=== PATIENT | female | born 1965 | race Hispanic/Latino ===

== ENCOUNTER 2022-06-07 20:13 | Emergency (ER) | payer OTHER, SELFPAY ==
[2022-06-07] MEDS ORDERED: Acetaminophen 500 MG TAB ONE (20:51)
[2022-06-07] MEDS ORDERED: Lorazepam 2 MG/ML VIAL ONE (20:51)
== END 2022-06-07 21:55 | disposition home or self-care (01) ==
LOC: ERS 20:13
DX: R07.89 Other chest pain (principal); M54.2 Cervicalgia; M54.6 Pain in thoracic spine; I10 Essential (primary) hypertension; E11.9 Type 2 diabetes mellitus without complications; V43.52XA Car driver injured in collision with other type car in traffic accident, initial encounter; W22.11XA Striking against or struck by driver side automobile airbag, initial encounter
CPT/HCPCS: 71045; 96372; J2060

== ENCOUNTER 2024-06-10 11:43 | Outpatient (CLI) | payer BC | END 2024-06-10 11:44 | disposition home or self-care (01) | LOC: BICRAD 11:43 | DX: M25.511 Pain in right shoulder (principal); M19.011 Primary osteoarthritis, right shoulder ==

== ENCOUNTER 2024-07-30 17:37 | Emergency (ER) | payer BC, OTHER ==
[2024-07-30 21:09] LABS: Bacteria/HPF None Seen HPF (None Seen); Bilirubin Negative (Negative); Blood, Urine Negative (Negative); CAUTI Indications for Culture Pelvic or flank pain; Clarity Clear (Clear); Glucose, Urine (Dipstick) Greater than 1000 mg/dL (Negative); Ketone, Urine Trace mg/dL (Negative); Leukocyte Negative Leu/uL (Negative); Nitrite Negative (Negative); Protein, Urine (Dipstick) 10 mg/dL (Neg-Trace); RBC/HPF 0-3 HPF (0-3); Specific Gravity, Urine 1.047 (1.002-1.036); Squamous Epithelial 0-3 HPF (0-3); Urobilinogen Normal mg/dL (Less than 2); WBC/HPF 0-3 HPF (0-3)
[2024-07-30 21:10] LABS: Urine Culture Reflex No No
[2024-07-30] MEDS ORDERED: Ketorolac Tromethamine 30 MG (1 mL) VIAL ONE (21:32)
[2024-07-30 22:12] LABS: #Basophils 0.03 10x3/uL (0.0-0.2); %Basophils 0.4 % (0.0-1.0); %Eosinophils 1.9 % (0.0-10.0); %Monocytes 7.3 % (0.0-10.0); %Neutrophils 64.7 % (42.0-75.0); Hematocrit 39.3 % (36.0-47.0); Hemoglobin 12.9 g/dL (12.0-16.0); Mean Corpuscular HGB CONC 32.8 g/dL (32.0-36.0); Mean Corpuscular Hemoglobin 27.5 pg (27.0-31.0); Mean Corpuscular Volume 83.8 fL (78.0-98.0); Mean Platelet Volume 8.9 fL (7.4-10.4); Platelet Count 425 10x3/uL (130-400); RBC Distribution Width 13.6 % (11.5-14.5); Red Blood Cell (RBC) Count 4.69 mill/uL (4.20-5.40)
[2024-07-30 22:33] LABS: ALT (SGPT) 18 U/L (8-55); AST (SGOT) 17 U/L (5-34); Albumin 3.8 g/dL (3.5-5.0); Alkaline Phosphatase 125 U/L (40-110); Anion Gap 15 mmol/L (10-20); BUN (Urea Nitrogen) 14 mg/dL (9.8-20.1); Bilirubin, Total 0.3 mg/dL (0.2-1.2); Calc. Creatinine Clearance 0 mL/min (70-130); Calcium 7.9 mg/dL (7.8-10.44); Carbon Dioxide 24 mmol/L (22-29); Chloride 102 mmol/L (98-107); Estimated GFR 96; Globulin 3.3 g/dL (2.4-3.5); Glucose 313 mg/dL (70-105); Potassium 3.6 mmol/L (3.5-5.1); Protein, Total 7.1 g/dL (6.0-8.3); Sodium 137 mmol/L (136-145)
[2024-07-30 22:37] LABS: Troponin I Less than 0.010 ng/mL (< 0.028)
[2024-07-30] MEDS ORDERED: Lidocaine 4% Patch ONE (23:39)
== END 2024-07-30 23:44 | disposition home or self-care (01) ==
LOC: ERS 17:37
DX: M54.6 Pain in thoracic spine (principal); E11.65 Type 2 diabetes mellitus with hyperglycemia; I10 Essential (primary) hypertension; W19.XXXA Unspecified fall, initial encounter; Y93.89 Activity, other specified
CPT/HCPCS: 36415; 72128; 80053; 81001; 84484; 85025; 85379; 87086; 96372; J1885